=== PATIENT | male | born 1960 | race African-American/Black ===

== ENCOUNTER 2017-01-06 23:16 | Emergency (ER) | payer MEDICAID | END 2017-01-06 23:34 | disposition left against medical advice (07) | LOC: D.ER 23:16 | DX: G89.29 Other chronic pain (principal); F17.200 Nicotine dependence, unspecified, uncomplicated; I10 Essential (primary) hypertension ==

== ENCOUNTER 2019-03-07 15:40 | Emergency (ER) | payer SELFPAY ==
[~2019-03-07] VITALS: Ht 180.3 cm; Wt 71.4 kg
[2019-03-07 16:06] VITALS: Ht 180.3 cm; Wt 71.4 kg
[2019-03-07] MEDS ORDERED: CYCLOBENZAPRINE10 MG PO (19:40)
[2019-03-07] MEDS ORDERED: HYDROCODON-ACE1 EAC7 PO (19:41)
[2019-03-07 20:30] VITALS: BP 144/86
== END 2019-03-07 20:30 | disposition home or self-care (01) ==
LOC: D.ER 15:40
DX: S39.012A Strain of muscle, fascia and tendon of lower back, initial encounter (principal); W14.XXXA Fall from tree, initial encounter; Y93.89 Activity, other specified; Y92.89 Other specified places as the place of occurrence of the external cause; M54.31 Sciatica, right side

== ENCOUNTER 2019-03-17 00:30 | Emergency (ER) | payer OTHER ==
[~2019-03-17] VITALS: Ht 180.3 cm; Wt 71.4 kg
[~2019-03-17 00:30] MED LIST: CYCLOBENZAPRINE10 MG PO; HYDROCODON-ACE1 EAC7 PO
[2019-03-17 00:36] VITALS: BP 136/85; Ht 180.3 cm; Wt 71.4 kg
== END 2019-03-17 02:00 | disposition left against medical advice (07) ==
LOC: D.ER 00:30
DX: M54.5 Low back pain (principal); M54.31 Sciatica, right side

== ENCOUNTER 2020-03-16 02:32 | Emergency (ER) | payer OTHER ==
[~2020-03-16] VITALS: Ht 180.3 cm; Wt 70.5 kg
[2020-03-16 02:42] VITALS: Ht 180.3 cm; Wt 70.5 kg
[2020-03-16] MEDS ORDERED: HYDROCODON-ACE1 EAC7 PO (03:45)
[2020-03-16] MEDS ORDERED: CLEOCIN HCL300 MG PO (03:45)
[2020-03-16 04:06] VITALS: BP 133/79
== END 2020-03-16 04:06 | disposition home or self-care (01) ==
LOC: D.ER 02:32
DX: L03.011 Cellulitis of right finger (principal); M79.644 Pain in right finger(s)

== ENCOUNTER 2020-09-11 16:42 | Emergency (ER) | payer OTHER ==
[~2020-09-11] VITALS: Ht 180.3 cm; Wt 71.4 kg
[~2020-09-11 16:42] MED LIST changes: +CLEOCIN HCL300 MG PO; +STERAPRED 5MG 125 MG PO; +ZOVIRAX200 MG PO
[2020-09-11 16:54] VITALS: BP 119/71; Ht 180.3 cm; Wt 71.4 kg
[2020-09-11] MEDS ORDERED: VOLTAREN75 MG PO (18:47)
[2020-09-11] MEDS ORDERED: HYDROCODON-ACE1 EAC7 PO (18:47)
== END 2020-09-11 19:05 | disposition home or self-care (01) ==
LOC: D.ER 16:42
DX: M54.5 Low back pain (principal); G89.29 Other chronic pain; M25.559 Pain in unspecified hip

== ENCOUNTER 2020-10-28 03:21 | Emergency (ER) | payer SELFPAY ==
[~2020-10-28] VITALS: Ht 180.3 cm; Wt 71.8 kg
[~2020-10-28 03:21] MED LIST changes: +VOLTAREN75 MG PO
[2020-10-28 03:46] VITALS: BP 131/116; Ht 180.3 cm; Wt 71.8 kg
[2020-10-28] MEDS ORDERED: VOLTAREN75 MG PO (04:16)
[2020-10-28] MEDS ORDERED: HYDROCODON-ACE1 EAC7 PO (04:16)
== END 2020-10-28 04:30 | disposition home or self-care (01) ==
LOC: D.ER 03:21
DX: M54.5 Low back pain (principal); R10.9 Unspecified abdominal pain; G89.29 Other chronic pain; M41.9 Scoliosis, unspecified

== ENCOUNTER 2020-11-04 11:08 | Emergency (ER) | payer OTHER ==
[~2020-11-04] VITALS: Ht 180.3 cm; Wt 71.4 kg
[2020-11-04 11:37] VITALS: BP 154/103; Ht 180.3 cm; Wt 71.4 kg
[2020-11-04 12:34] LABS: BASOPHILS 0.1 % (0-2); EOSINOPHILS 4.4 % (0-7); HEMATOCRIT 44.3 % (42.0-54.0); HEMOGLOBIN 15.2 g/dL (13.5-17.5); IMMATURE GRANULOCYTES 0.4 % (0-5); LYMPHOCYTE ABS# 3.55 10x3/uL (1.32-3.57); LYMPHOCYTES 44.2 % (15-50); MCH 32.5 pg (26.0-34.0); MCHC 34.3 g/dL (31.0-37.0); MCV 94.7 fL (80.0-100.0); MEAN PLATELET VOLUME 11.2 fL (7.4-10.4); NEUTROPHIL ABS# 3.54 10x3/uL (1.78-5.38); NEUTROPHILS 43.9 % (40-80); PLATELET COUNT 192 10x3/uL (130-400); RBC 4.68 10x6/uL (4.20-6.10); RDW 14.3 % (11.5-14.5)
[2020-11-04 12:47] LABS: CALCIUM 9.4 mg/dL (8.5-10.1); CARBON DIOXIDE 26.8 mmol/L (21.0-32.0); CREATININE - SERUM 1.3 mg/dL (0.6-1.3); POTASSIUM - SERUM 3.8 mmol/L (3.5-5.1)
[2020-11-04 12:52] LABS: APTT 37.8 SECONDS (22.8-39.4); PROTIME 12.2 SECONDS (11.6-15.0)
[2020-11-04 12:54] LABS: BILIRUBIN - TOTAL 0.28 mg/dL (0.2-1.3); PROTEIN - SERUM 8.5 g/dL (6.4-8.2)
[2020-11-04] MEDS ORDERED: HYDROCORTISONE30 G9 TOPICAL (14:13)
== END 2020-11-04 14:28 | disposition home or self-care (01) ==
LOC: D.ER 11:08
PROVIDERS: Emergency Medicine
DX: K64.9 Unspecified hemorrhoids (principal); K62.5 Hemorrhage of anus and rectum